=== PATIENT | male | born 1975 | race Caucasian/White ===

== ENCOUNTER → 2023-10-02 | Outpatient (CLI) | payer OTHER ==
[2023-10-02 11:16] LABS: CALCIUM LEVEL 9.2 MG/DL (8.5-10.1); CREATININE FOR GFR 1.41 MG/DL (0.70-1.30); GLOMERULAR FILTRATION RATE 57.1 (>60); POTASSIUM SERUM 4.2 MMOL/L (3.5-5.1)
[2023-10-02 11:17] LABS: PTH INTACT 19.1 PG/ML (18.5-88.0)
[2023-10-02 11:18] LABS: THYROID STIMULATING HORMONE 1.976 uIU/ML (0.55-4.78)
[2023-10-02 11:19] LABS: FREE T4 1.06 NG/DL (0.89-1.76)
== END ==
LOC: M LAB 09:58
PROVIDERS: ATTEND Physician Assistant
DX: I11.9 Hypertensive heart disease without heart failure (principal); R53.83 Other fatigue

== ENCOUNTER → 2023-10-08 | Outpatient (CLI) | payer OTHER ==
[2023-10-13 16:09] LABS: DOPAMINE 86 ug/24 hr (0-510); DOPAMINE TOTAL URINE 32 ug/L (Undefined); EPINEPHRINE < 8 ug/24 hr (0-20); EPINEPHRINE TOTAL URINE <3 ug/L (Undefined); NOREPINEPHRINE < 40 ug/24 hr (0-135); NOREPINEPHRINE TOTAL URINE <15 ug/L (Undefined)
== END ==
LOC: M RAD 12:21
PROVIDERS: ATTEND Physician Assistant
DX: I11.9 Hypertensive heart disease without heart failure (principal)

== ENCOUNTER → 2024-03-16 | Outpatient (REF) | payer OTHER ==
[2024-03-16 14:02] LABS: BASO # 0.1 10^3/uL (0.0-0.2); BASO % 0.8 % (0.0-1.0); EOS # 0.3 10^3/uL (0.0-0.5); EOS % 2.2 % (0.0-3.0); HEMATOCRIT 53.5 % (42.0-52.0); HEMOGLOBIN 17.2 g/dl (13.5-17.5); LYMPH # 1.6 10^3/uL (1.5-5.0); LYMPH % 12.4 % (24.0-44.0); MEAN CORPUSCULAR HEMOGLOBIN 29.5 pg (27.0-33.0); MEAN CORPUSCULAR HGB CONC 32.1 g/dl (32.0-36.5); MEAN CORPUSCULAR VOLUME 91.8 fl (80.0-96.0); MONO % 7.8 % (2.0-8.0); NEUTROPHILS # 9.8 10^3/uL (1.5-8.5); NEUTROPHILS % 76.1 % (36.0-66.0); PLATELET COUNT, AUTOMATED 468 10^3/uL (150-450); RED BLOOD COUNT 5.83 10^6/uL (4.30-6.10)
[2024-03-16 14:04] LABS: CALCIUM LEVEL 10.1 MG/DL (8.5-10.1); CHOLESTEROL RISK RATIO 8.37 (<5); CREATININE FOR GFR 1.48 MG/DL (0.70-1.30); GLOMERULAR FILTRATION RATE 53.8 (>60); HDL CHOLESTEROL 33.3 MG/DL (>40); LDL CHOLESTEROL 210.9 MG/DL (<100); NON-HDL-C 245.7 MG/DL; POTASSIUM SERUM 4.6 MMOL/L (3.5-5.1)
== END ==
LOC: M SFHCADAM 08:26
PROVIDERS: ATTEND Physician Assistant
DX: I11.9 Hypertensive heart disease without heart failure (principal); E78.5 Hyperlipidemia, unspecified; Z68.32 Body mass index [BMI] 32.0-32.9, adult

== ENCOUNTER → 2024-11-09 | Outpatient (REF) | payer OTHER | LOC: M SFHCDERM 12:43 | PROVIDERS: ATTEND Physician Assistant | DX: D18.01 Hemangioma of skin and subcutaneous tissue (principal) ==

== ENCOUNTER → 2025-05-25 | Outpatient (REF) | payer OTHER ==
[2025-05-25 14:10] LABS: PLATELET COUNT, AUTOMATED 316 10^3/uL (150-450)
[2025-05-25 14:31] LABS: ALT/SGPT 42.0 U/L (7.0-40); AST/SGOT 26.0 U/L (<34); CALCIUM LEVEL 9.4 MG/DL (8.5-10.1); CARBON DIOXIDE LEVEL 30.0 MMOL/L (20-31); CHLORIDE LEVEL 101.0 MMOL/L (98-107); CHOLESTEROL LEVEL 246.0 MG/DL (<200); CHOLESTEROL RISK RATIO 6.35 (<5); CREATININE FOR GFR 1.58 MG/DL (0.70-1.30); GLOMERULAR FILTRATION RATE 53.0 (>56); LDL CHOLESTEROL 154.7 MG/DL (<100); NON-HDL-C 207.3 MG/DL; POTASSIUM SERUM 4.7 MMOL/L (3.5-5.1); SODIUM LEVEL 137.0 MMOL/L (136-145); TRIGLYCERIDES LEVEL 263.0 MG/DL (<150)
[2025-05-25 14:34] LABS: FREE T4 1.14 NG/DL (0.89-1.76)
[2025-05-25 14:55] LABS: TESTOSTERONE 1473.0 NG/DL (241-827)
== END ==
LOC: M SFHCADAM 07:51
PROVIDERS: ATTEND Physician Assistant
DX: I11.9 Hypertensive heart disease without heart failure (principal); E78.5 Hyperlipidemia, unspecified; Z79.890 Hormone replacement therapy; Z68.32 Body mass index [BMI] 32.0-32.9, adult

== ENCOUNTER → 2025-08-23 | Outpatient (REF) | payer OTHER ==
[2025-08-23 14:53] LABS: ALT/SGPT 54.0 U/L (7.0-40); AST/SGOT 36.0 U/L (<34); CALCIUM LEVEL 9.6 MG/DL (8.5-10.1); CARBON DIOXIDE LEVEL 31.0 MMOL/L (20-31); CHLORIDE LEVEL 99.0 MMOL/L (98-107); CHOLESTEROL LEVEL 248.0 MG/DL (<200); CHOLESTEROL RISK RATIO 6.26 (<5); CREATININE FOR GFR 1.49 MG/DL (0.70-1.30); GLOMERULAR FILTRATION RATE 56.8 (>56); LDL CHOLESTEROL 166.0 MG/DL (<100); NON-HDL-C 208.4 MG/DL; POTASSIUM SERUM 4.9 MMOL/L (3.5-5.1); PSA SCREENING 0.75 NG/ML (< 4.00); SODIUM LEVEL 136.0 MMOL/L (136-145); TRIGLYCERIDES LEVEL 212.0 MG/DL (<150)
[2025-08-23 14:54] LABS: FREE T4 1.16 NG/DL (0.89-1.76)
[2025-08-23 14:55] LABS: PLATELET COUNT, AUTOMATED 251 10^3/uL (150-450); TESTOSTERONE 1112.0 NG/DL (241-827)
[2025-08-23 15:15] LABS: ESTIMATED AVERAGE GLUCOSE 120.0 MG/DL (60-110)
== END ==
LOC: M SFHCADAM 07:55
PROVIDERS: ATTEND Family Medicine
DX: D75.1 Secondary polycythemia (principal); I11.9 Hypertensive heart disease without heart failure; E78.5 Hyperlipidemia, unspecified; Z13.1 Encounter for screening for diabetes mellitus; Z12.5 Encounter for screening for malignant neoplasm of prostate; Z79.890 Hormone replacement therapy; T38 Poisoning by, adverse effect of and underdosing of hormones and their synthetic substitutes and antagonists, not elsewhere classified
CPT/HCPCS: 80053; 80061; 82728; 83036; 84403; 84439; 84443; 85027; G0103